=== PATIENT | male | born 2000 | race Caucasian/White ===

== ENCOUNTER 2019-03-28 11:01 | Outpatient (CLI) | payer BC, SELFPAY ==
[2019-03-29 11:11] LABS: Syphilis Serology (RPR) Negative (Negative)
[2019-03-29 12:20] LABS: HIV-1/2 Ag & Ab Screen Negative (Negative)
[2019-03-29 15:22] LABS: Hepatitis Be Antigen Negative (Negative)
== END 2019-03-28 11:21 ==
PROVIDERS: PCP Family Medicine; Visit Provider Nurse Practitioner
DX: Z11.3 Encounter for screening for infections with a predominantly sexual mode of transmission (principal); Z11.4 Encounter for screening for human immunodeficiency virus [HIV]
CPT/HCPCS: 36415; 87389; 86592; 87350

== ENCOUNTER 2021-03-26 03:39 | Outpatient (CLI) | payer BC, SELFPAY ==
[2021-03-26 14:04] LABS: Hemoglobin A1C 5.2 % (<5.7)
[2021-03-26 15:24] LABS: Calculated LDL 103 mg/dL (<100); Cholesterol 189 mg/dL (<200); HDL Cholesterol 67 mg/dL (40-60); Triglyceride 98 mg/dL (<150)
== END 2021-03-26 03:40 | disposition home or self-care (01) ==
LOC: LBO 03:39
PROVIDERS: PCP Nurse Practitioner Family; Visit Provider Nurse Practitioner Family
DX: Z13.1 Encounter for screening for diabetes mellitus (principal); Z13.220 Encounter for screening for lipoid disorders
CPT/HCPCS: 36415; 80061; 83036

== ENCOUNTER 2021-06-03 19:49 | Outpatient (REF) | payer BC, SELFPAY ==
[2021-06-04 15:14] LABS: Chlamydia Result Negative (Negative); GC Result Negative (Negative)
== END 2021-06-03 19:50 | disposition home or self-care (01) ==
LOC: LBN 19:49
PROVIDERS: PCP Nurse Practitioner Family; Visit Provider Nurse Practitioner Family
DX: Z20.2 Contact with and (suspected) exposure to infections with a predominantly sexual mode of transmission (principal)
CPT/HCPCS: 87491; 87591